=== PATIENT | female | born 1955 | race Hispanic/Latino ===

== ENCOUNTER → 2017-07-20 | Outpatient (CLI) | payer MEDICAID ==
[~2017-07-20] MED LIST: ACET-66 PO; ACET1TAB27 PO; ACET500C4 PO; AMOX-426 PO; ASPI-1181 PO; ATOR40TA69 PO; BUTA1CAP49 PO; CARB400T3 PO; CEFD300C3 PO; CIPR-245 PO; FIORIT PO; GABA-529 PO; IBUP-2070 PO; IBUP-2077 PO; LAMO100T13 PO; LISI10TA7 PO; LORA0.5T2 PO; LORA2TAB2 PO; MECL-111 PO; MOME17N EN; MONT10TA24 PO; OMEP40CA37 PO; ONDA4TAB10 PO; ONDA4TAB4 PO; PHEN100C23 PO; PHEN100C9 PO; VENL-62 PO
== END | disposition home or self-care (01) ==
LOC: RAH 09:09
PROVIDERS: ATTEND Internal Medicine
DX: K44.9 Diaphragmatic hernia without obstruction or gangrene (principal); K21.9 Gastro-esophageal reflux disease without esophagitis
CPT/HCPCS: 74240

== ENCOUNTER → 2017-08-30 | Outpatient (CLI) | payer MEDICAID ==
[~2017-08-30] MED LIST changes: -ACET-66 PO; -ACET1TAB27 PO; -AMOX-426 PO; -ASPI-1181 PO; -ATOR40TA69 PO; -CARB400T3 PO; -FIORIT PO; -IBUP-2070 PO; -LORA2TAB2 PO; -MECL-111 PO; -MOME17N EN; -MONT10TA24 PO; -OMEP40CA37 PO; -ONDA4TAB4 PO; -PHEN100C23 PO; -PHEN100C9 PO
== END | disposition home or self-care (01) ==
LOC: RAH 11:29
PROVIDERS: ATTEND Family Medicine
DX: S33.39XA Dislocation of other parts of lumbar spine and pelvis, initial encounter (principal); M43.8X6 Other specified deforming dorsopathies, lumbar region; M25.552 Pain in left hip; X58.XXXA Exposure to other specified factors, initial encounter; Y92.89 Other specified places as the place of occurrence of the external cause; Y93.89 Activity, other specified; Y99.8 Other external cause status
CPT/HCPCS: 72100; 73502

== ENCOUNTER → 2018-09-26 | Outpatient (CLI) | payer MEDICAID | END | disposition home or self-care (01) | LOC: RAH 08:48 | PROVIDERS: ATTEND Family Medicine | DX: M16.11 Unilateral primary osteoarthritis, right hip (principal); M85.851 Other specified disorders of bone density and structure, right thigh; M47.816 Spondylosis without myelopathy or radiculopathy, lumbar region | CPT/HCPCS: 72100; 73502 ==

== ENCOUNTER → 2020-05-17 | Outpatient (CLI) | payer MEDICARE ==
[~2020-05-17] MED LIST changes: -CIPR-245 PO; +CIPR500T10 PO; -LAMO100T13 PO; +LAMO100T16 PO; +LISI10TA24 PO; -LISI10TA7 PO
== END | disposition home or self-care (01) ==
LOC: RAH 10:40
PROVIDERS: ATTEND Family Medicine
DX: I65.23 Occlusion and stenosis of bilateral carotid arteries (principal); R55 Syncope and collapse
CPT/HCPCS: 93880

== ENCOUNTER 2020-05-20 20:14 | Emergency (ER) | payer MEDICARE ==
[2020-05-20] MEDS ORDERED: ONDANSETRON HCL 4 MG/2 ML VIAL ONE (21:10)
[2020-05-20] MEDS ORDERED: MORPHINE SULFATE 2 MG/ML 1ML SYG ONE (21:11)
== END 2020-05-20 23:57 | disposition home or self-care (01) ==
LOC: EDH 20:14
DX: S82.302A Unspecified fracture of lower end of left tibia, initial encounter for closed fracture (principal); S82.65XA Nondisplaced fracture of lateral malleolus of left fibula, initial encounter for closed fracture; F41.9 Anxiety disorder, unspecified; I10 Essential (primary) hypertension; X50.1XXA Overexertion from prolonged static or awkward postures, initial encounter; Y93.89 Activity, other specified; Y92.098 Other place in other non-institutional residence as the place of occurrence of the external cause; Y99.8 Other external cause status
CPT/HCPCS: 29515; 73610; 96372; 99283; J2405

== ENCOUNTER 2020-08-25 15:59 | Emergency (ER) | payer MEDICARE ==
[~2020-08-25] VITALS: Ht 152.4 cm; Wt 68.9 kg
[2020-08-25 16:02] VITALS: BP 153/64
[2020-08-25 17:30] VITALS: BP 130/61
[2020-08-25] MEDS ORDERED: ONDANSETRON 4MG INJ ONE (19:23)
[2020-08-25] MEDS ORDERED: ONDANSETRON 4MG INJ IVP ONE (19:30)
== END 2020-08-25 20:36 | disposition home or self-care (01) ==
LOC: EDBD 15:59 → EDH 16:54
DX: S00.81XA Abrasion of other part of head, initial encounter (principal); S80.212A Abrasion, left knee, initial encounter; K21.9 Gastro-esophageal reflux disease without esophagitis; I10 Essential (primary) hypertension; F41.9 Anxiety disorder, unspecified; Z79.899 Other long term (current) drug therapy; W18.39XA Other fall on same level, initial encounter; Y93.89 Activity, other specified; Y92.89 Other specified places as the place of occurrence of the external cause; Y99.8 Other external cause status
CPT/HCPCS: 70450; 82948; 93005; 96374; 99284; J2405

== ENCOUNTER 2020-09-18 00:50 | Observation (INO) | payer MEDICARE ==
[~2020-09-18] VITALS: Ht 152.4 cm; Wt 65.8 kg
[2020-09-18] VITALS (7 sets, daily range): BP systolic 95–143; BP diastolic 48–69
[2020-09-18 01:13] LABS: HEMATOCRIT 32.4 % (36-48); MEAN CORPUSCULAR HEMOGLOBIN 30.5 pg (27.0-33.0); MEAN CORPUSCULAR HGB CONC 33.3 g/dL (32.0-36.0); MEAN CORPUSCULAR VOLUME 91.5 fL (79-99); PLATELET COUNT (AUTO) 430 K/uL (130-400); RED BLOOD CELL COUNT(AUTO) 3.54 MIL/uL (4.00-5.50); RED CELL DISTRIBUTION WIDTH 13.2 % (11.0-15.5); WHITE BLOOD COUNT (AUTO) 9.2 K/uL (4.8-10.8)
[2020-09-18 01:25] LABS: CREATININE 1.2 mg/dL (0.5-1.5); POTASSIUM 4.2 mmol/L (3.5-5.1)
[2020-09-18 01:29] LABS: ALBUMIN 4.1 g/dL (3.5-5.0); BILIRUBIN,TOTAL 0.2 mg/dL (0.2-1.0); TOTAL PROTEIN, SERUM 8.3 g/dL (6.0-8.3)
[2020-09-18] MEDS ORDERED: CEFTRIAXONE 1G VIAL IVP ONE (01:30)
[2020-09-18] MEDS ORDERED: CEFTRIAXONE 1G VIAL ONE (01:32)
[2020-09-18 01:36] LABS: APPEARANCE,URINE Clear (CLEAR); BILIRUBIN,URINE Negative (NEGATIVE); COLOR,URINE Yellow (YELLOW); GLUCOSE, URINE (UA) Negative (NEGATIVE); KETONES,URINE Negative (NEGATIVE); LEUKOCYTE ESTERASE ,URINE Moderate (NEGATIVE); NITRATE,URINE Negative (NEGATIVE); OCCULT BLOOD,URINE Trace (NEGATIVE); PH,URINE 5.5 (5.0-8.0); PROTEIN,URINE Negative (NEGATIVE); UROBILINOGEN,URINE 0.2 mg/dL (0.2-1.0)
[2020-09-18] MEDS ORDERED: 0.9%NACL 1000ML 1,000 ML IV ONE ×2 (01:48→05:30)
[2020-09-18 01:52] LABS: RBC,URINE 0-1 /HPF (0-1)
[2020-09-18 01:53] LABS: BACTERIA,URINE None Seen /HPF (None Seen); SQUAMOUS EPITHELIAL CELL,UR Few /HPF (0-2)
[2020-09-18] MEDS: 0.9%NACL 1000ML 1,000 ML IV SCH ×4 (01:53→05:53)
[2020-09-18 02:10] LABS: EOSINOPHILS % (MANUAL) 2 % (1-6); LYMPHOCYTES % (MANUAL) 33 % (22-44); MONOCYTES % (MANUAL) 7 % (2-9); SEGMENTED NEUTROPHILS % 58 % (40-70)
[2020-09-18 02:11] LABS: MAN.DIFF COMMENT-IMPRESSION MANUAL DIFFERENTIAL
[2020-09-18 02:12] LABS: PLATELET MORPHOLOGY COMMENT SLIGHT INCREASED
[2020-09-18] MEDS ORDERED: ONDANSETRON 4MG INJ IVP ONE (03:00)
[2020-09-18] MEDS ORDERED: PANTOPRAZOLE 40 MG/VIAL IV SCH (03:00)
[2020-09-18] MEDS ORDERED: ONDANSETRON 4MG INJ ONE (03:00)
[2020-09-18] MEDS ORDERED: PANTOPRAZOLE 40 MG/VIAL ONE ×2 (03:01→06:41)
[2020-09-18] MEDS ORDERED: IOHEXOL 350 MG/ML 100ML INFUS..BTL IV ONE (03:17)
[2020-09-18] MEDS ORDERED: FAMOTIDINE 20MG VIAL IV ONE ×2 (03:24→03:30)
[2020-09-18] MEDS ORDERED: METOCLOPRAMIDE 10 MG/2 ML VIAL ONE (03:24)
[2020-09-18] MEDS ORDERED: METOCLOPRAMIDE 10 MG/2 ML VIAL IVP ONE (03:30)
[2020-09-18] MEDS ORDERED: ONDANSETRON 4MG INJ IV PRN (06:30)
[2020-09-18] MEDS ORDERED: AZITHROMYCIN 500MG VIAL IVPB SCH (06:30)
[2020-09-18] MEDS ORDERED: LACTATED RINGERS 1000ML 1,000 ML IV SCH (06:30)
[2020-09-18] MEDS ORDERED: 0.9% NACL 250ML IVPB SCH (06:30)
[2020-09-18] MEDS ORDERED: CEFTRIAXONE 1G VIAL IV SCH (06:30)
[2020-09-18 06:58] LABS: BASOPHILS % (AUTO) 0.6 % (0.0-5.0); EOSINOPHILS % (AUTO) 5.8 % (0.0-8.0); HEMATOCRIT 30.4 % (36-48); LYMPHOCYTES % (AUTO) 23.6 % (21.0-51.0); MEAN CORPUSCULAR HEMOGLOBIN 29.9 pg (27.0-33.0); MEAN CORPUSCULAR HGB CONC 32.6 g/dL (32.0-36.0); MEAN CORPUSCULAR VOLUME 91.8 fL (79-99); MONOCYTES % (AUTO) 8.6 % (3.0-13.0); NEUTROPHILS % (AUTO) 61.1 % (40.0-77.0); PLATELET COUNT (AUTO) 347 K/uL (130-400); RED BLOOD CELL COUNT(AUTO) 3.31 MIL/uL (4.00-5.50); RED CELL DISTRIBUTION WIDTH 13.1 % (11.0-15.5); WHITE BLOOD COUNT (AUTO) 7.8 K/uL (4.8-10.8)
[2020-09-18] MEDS ORDERED: 0.9% NACL 250ML 250 ML IV SCH (07:00)
[2020-09-18] MEDS ORDERED: AZITHROMYCIN 500MG+NS 250ML IV SCH (07:00)
[2020-09-18] MEDS ORDERED: TRAZ-185 PO (08:21)
[2020-09-18] MEDS ORDERED: ALLO100T PO (08:21)
[2020-09-18] MEDS ORDERED: SUCR1TAB2 PO (08:21)
[2020-09-18] MEDS ORDERED: DOCU100T PO (08:21)
[2020-09-18] MEDS ORDERED: LISI20TA24 PO (08:21)
[2020-09-18] MEDS ORDERED: FAMO-136 PO (08:21)
[2020-09-18] MEDS ORDERED: GABA300C PO (08:21)
[2020-09-18] MEDS ORDERED: MAGN400O17 PO (08:21)
[2020-09-18] MEDS ORDERED: MONT10TA32 PO (08:21)
[2020-09-18] MEDS ORDERED: LAMO100T16 PO (08:21)
[2020-09-18] MEDS ORDERED: MULT-1203 PO (08:21)
[2020-09-18] MEDS ORDERED: FERR-72 PO (08:21)
[2020-09-18] MEDS ORDERED: TOPI100T31 PO (08:21)
[2020-09-18] MEDS ORDERED: GUAI100S13 PO (08:21)
[2020-09-18] MEDS ORDERED: LACT10SO9 PO (08:21)
[2020-09-18] MEDS ORDERED: SENN-295 PO (08:21)
[2020-09-18] MEDS ORDERED: LOPE2TAB26 PO (08:21)
[2020-09-18] MEDS ORDERED: IRON1CAP32 PO (08:21)
[2020-09-18] MEDS ORDERED: ACET325C6 PO (08:21)
[2020-09-18] MEDS ORDERED: ALPR0.5T8 PO (08:21)
[2020-09-18] MEDS ORDERED: ACET1TAB25 PO (08:21)
[2020-09-18] MEDS ORDERED: MECL-160 PO (08:21)
[2020-09-18] MEDS ORDERED: PANTOPRAZOLE 40MG INJ 80 MG in 0.9%NACL 100ML 100 ML IV SCH (09:00)
[2020-09-18] MEDS ORDERED: AMOX-426 PO (11:08)
== END 2020-09-18 13:34 | disposition home or self-care (01) ==
LOC: EDH 01:17 → EDHIP 06:15
PROVIDERS: ADMIT Internal Medicine Pulmonary Disease; ATTEND Internal Medicine Pulmonary Disease
DX: K04.7 Periapical abscess without sinus (principal); K92.2 Gastrointestinal hemorrhage, unspecified; K00.7 Teething syndrome; D64.9 Anemia, unspecified; R56.9 Unspecified convulsions; I10 Essential (primary) hypertension; E11.9 Type 2 diabetes mellitus without complications; G30.9 Alzheimer's disease, unspecified; F02.80 Dementia in other diseases classified elsewhere, unspecified severity, without behavioral disturbance, psychotic disturbance, mood disturbance, and anxiety; J44.9 Chronic obstructive pulmonary disease, unspecified; R53.1 Weakness; F41.9 Anxiety disorder, unspecified; K59.00 Constipation, unspecified; E86.9 Volume depletion, unspecified; Z90.49 Acquired absence of other specified parts of digestive tract; Z79.899 Other long term (current) drug therapy; Z98.891 History of uterine scar from previous surgery; Z98.890 Other specified postprocedural states
CPT/HCPCS: 36415; 70450; 71045; 71260; 74177; 80053; 80185; 81001; 82270; 83605; 83690; 84484; 85025 ×2; 86677; 87040 ×2; 87088; 93005; 96361 ×2; 96374; 96375; 96376; 99285; C9113 ×3; G0378 ×7; J0696; J2405; J2765; J3490; J7030; J7050; J7120; Q9967; 96365

== ENCOUNTER 2020-09-20 08:33 | Emergency (ER) | payer MEDICARE ==
[2020-09-20] VITALS (7 sets, daily range): BP systolic 142–161; BP diastolic 68–82
[~2020-09-20] VITALS: Ht 160 cm; Wt 74.8 kg
[~2020-09-20 08:33] MED LIST changes: +ACET1TAB25 PO; +ACET325C6 PO; -ACET500C4 PO; +ALLO100T PO; +ALPR0.5T8 PO; +AMOX-426 PO; -BUTA1CAP49 PO; -CEFD300C3 PO; -CIPR500T10 PO; +DOCU100T PO; +FAMO-136 PO; +FERR-72 PO; -GABA-529 PO; +GABA300C PO; +GUAI100S13 PO; -IBUP-2077 PO; +IRON1CAP32 PO; +LACT10SO9 PO; -LISI10TA24 PO; +LISI20TA24 PO; +LOPE2TAB26 PO; -LORA0.5T2 PO; +MAGN400O17 PO; +MECL-160 PO; +MONT10TA32 PO; +MULT-1203 PO; -ONDA4TAB10 PO; +SENN-295 PO; +SUCR1TAB2 PO; +TOPI100T31 PO; +TRAZ-185 PO; -VENL-62 PO
[2020-09-20] MEDS ORDERED: LORAZEPAM 2 MG/ML 1 ML VIAL IVP SCH (09:00)
[2020-09-20 09:14] LABS: BASOPHILS % (AUTO) 0.2 % (0.0-5.0); EOSINOPHILS % (AUTO) 0.1 % (0.0-8.0); HEMATOCRIT 29.8 % (36-48); LYMPHOCYTES % (AUTO) 8.1 % (21.0-51.0); MEAN CORPUSCULAR HEMOGLOBIN 29.8 pg (27.0-33.0); MEAN CORPUSCULAR HGB CONC 33.9 g/dL (32.0-36.0); MEAN CORPUSCULAR VOLUME 87.9 fL (79-99); MONOCYTES % (AUTO) 3.1 % (3.0-13.0); NEUTROPHILS % (AUTO) 88.2 % (40.0-77.0); PLATELET COUNT (AUTO) 381 K/uL (130-400); RED BLOOD CELL COUNT(AUTO) 3.39 MIL/uL (4.00-5.50); RED CELL DISTRIBUTION WIDTH 12.7 % (11.0-15.5); WHITE BLOOD COUNT (AUTO) 9.2 K/uL (4.8-10.8)
[2020-09-20 09:28] LABS: CREATININE 1.1 mg/dL (0.5-1.5)
[2020-09-20 09:31] LABS: ALBUMIN 4.1 g/dL (3.5-5.0); BILIRUBIN,TOTAL 0.4 mg/dL (0.2-1.0); MAGNESIUM 1.9 mg/dL (1.80-2.40)
[2020-09-20] MEDS ORDERED: LAMOTRIGINE 100 MG TABLET PO SCH (15:30)
== END 2020-09-20 18:40 | disposition home or self-care (01) ==
LOC: EDH 08:33
DX: G40.89 Other seizures (principal); F41.9 Anxiety disorder, unspecified; I10 Essential (primary) hypertension; Z79.899 Other long term (current) drug therapy; Z79.1 Long term (current) use of non-steroidal anti-inflammatories (NSAID)
CPT/HCPCS: 36415; 70450; 80053; 80201; 82542; 82550; 83690; 83735; 84484; 85025; 96374; 99285; J2060

== ENCOUNTER 2020-10-06 18:54 | Emergency (ER) | payer MEDICARE ==
[~2020-10-06] VITALS: Ht 154.9 cm; Wt 77.1 kg
[2020-10-06 19:58] LABS: BASOPHILS % (AUTO) 0.6 % (0.0-5.0); EOSINOPHILS % (AUTO) 4.4 % (0.0-8.0); HEMATOCRIT 31.4 % (36-48); LYMPHOCYTES % (AUTO) 32.4 % (21.0-51.0); MEAN CORPUSCULAR HEMOGLOBIN 30.2 pg (27.0-33.0); MEAN CORPUSCULAR HGB CONC 32.8 g/dL (32.0-36.0); MEAN CORPUSCULAR VOLUME 92.1 fL (79-99); MONOCYTES % (AUTO) 9.8 % (3.0-13.0); NEUTROPHILS % (AUTO) 52.5 % (40.0-77.0); PLATELET COUNT (AUTO) 407 K/uL (130-400); RED BLOOD CELL COUNT(AUTO) 3.41 MIL/uL (4.00-5.50); RED CELL DISTRIBUTION WIDTH 12.7 % (11.0-15.5); WHITE BLOOD COUNT (AUTO) 6.8 K/uL (4.8-10.8)
[2020-10-06 20:07] VITALS: BP 149/72
[2020-10-06 20:11] LABS: APPEARANCE,URINE Clear (CLEAR); BILIRUBIN,URINE Negative (NEGATIVE); COLOR,URINE Yellow (YELLOW); GLUCOSE, URINE (UA) Negative (NEGATIVE); KETONES,URINE Negative (NEGATIVE); LEUKOCYTE ESTERASE ,URINE Small (NEGATIVE); NITRATE,URINE Negative (NEGATIVE); OCCULT BLOOD,URINE Negative (NEGATIVE); PH,URINE 7.5 (5.0-8.0); PROTEIN,URINE Negative (NEGATIVE); UROBILINOGEN,URINE 0.2 mg/dL (0.2-1.0)
[2020-10-06 20:18] LABS: CREATININE 1.4 mg/dL (0.5-1.5); POTASSIUM 4.2 mmol/L (3.5-5.1)
[2020-10-06 20:19] LABS: AMPHET/METH SCREEN,URINE NEGATIVE (NEGATIVE); BARBITURATE SCREEN, URINE NEGATIVE (NEGATIVE); BENZODIAZEPINES SCREEN,URINE NEGATIVE (NEGATIVE); CANNABINOID SCREEN,URINE NEGATIVE (NEGATIVE); COCAINE SCREEN,URINE NEGATIVE (NEGATIVE); OPIATE SCREEN,URINE NEGATIVE (NEGATIVE); PHENCYCLIDINE SCREEN,URINE NEGATIVE (NEGATIVE)
[2020-10-06 20:20] LABS: RBC,URINE 0-1 /HPF (0-1)
[2020-10-06 20:21] LABS: BACTERIA,URINE Rare /HPF (None Seen); SQUAMOUS EPITHELIAL CELL,UR Few /HPF (0-2)
[2020-10-06 20:22] LABS: ALBUMIN 3.9 g/dL (3.5-5.0); BILIRUBIN,TOTAL 0.2 mg/dL (0.2-1.0); TOTAL PROTEIN, SERUM 7.6 g/dL (6.0-8.3)
== END 2020-10-07 02:44 | disposition home or self-care (01) ==
LOC: EDH 18:54
DX: G40.89 Other seizures (principal); F41.9 Anxiety disorder, unspecified; I10 Essential (primary) hypertension; K21.9 Gastro-esophageal reflux disease without esophagitis; Z79.899 Other long term (current) drug therapy; Z20.822 Contact with and (suspected) exposure to COVID-19
CPT/HCPCS: 36415; 70450; 71045; 80053; 80305; 81001; 82140; 82550; 83605; 84484; 85025; 87040 ×2; 87635; 93005; 99285; C9803

== ENCOUNTER 2021-01-17 17:37 | Emergency (ER) | payer MEDICARE ==
[~2021-01-17] VITALS: Ht 149.9 cm; Wt 74.8 kg
[~2021-01-17 17:37] MED LIST changes: +MONT-39 PO; -MONT10TA32 PO
[2021-01-17 19:10] LABS: APPEARANCE,URINE Clear (CLEAR); BILIRUBIN,URINE Negative (NEGATIVE); COLOR,URINE Yellow (YELLOW); GLUCOSE, URINE (UA) Negative (NEGATIVE); KETONES,URINE Negative (NEGATIVE); LEUKOCYTE ESTERASE ,URINE Trace (NEGATIVE); NITRATE,URINE Negative (NEGATIVE); OCCULT BLOOD,URINE Small (NEGATIVE); PROTEIN,URINE Negative (NEGATIVE); UROBILINOGEN,URINE 0.2 mg/dL (0.2-1.0)
[2021-01-17 19:15] LABS: BASOPHILS % (AUTO) 0.2 % (0.0-5.0); EOSINOPHILS % (AUTO) 0.2 % (0.0-8.0); HEMATOCRIT 34.5 % (36-48); LYMPHOCYTES % (AUTO) 13.3 % (21.0-51.0); MEAN CORPUSCULAR HEMOGLOBIN 28.6 pg (27.0-33.0); MEAN CORPUSCULAR HGB CONC 32.8 g/dL (32.0-36.0); MEAN CORPUSCULAR VOLUME 87.3 fL (79-99); MONOCYTES % (AUTO) 6.6 % (3.0-13.0); NEUTROPHILS % (AUTO) 79.3 % (40.0-77.0); PLATELET COUNT (AUTO) 342 K/uL (130-400); RED BLOOD CELL COUNT(AUTO) 3.95 MIL/uL (4.00-5.50); RED CELL DISTRIBUTION WIDTH 12.3 % (11.0-15.5); WHITE BLOOD COUNT (AUTO) 10.4 K/uL (4.8-10.8)
[2021-01-17 19:26] LABS: CREATININE 1.3 mg/dL (0.5-1.5); POTASSIUM 4.2 mmol/L (3.5-5.1)
[2021-01-17 19:31] LABS: ALBUMIN 4.2 g/dL (3.5-5.0); BILIRUBIN,TOTAL 0.4 mg/dL (0.2-1.0); TOTAL PROTEIN, SERUM 8.2 g/dL (6.0-8.3)
[2021-01-17 19:32] LABS: BACTERIA,URINE Rare /HPF (None Seen); RBC,URINE 0-1 /HPF (0-1); WBC,URINE 0-1 /HPF (0-1)
[2021-01-17 19:33] LABS: SQUAMOUS EPITHELIAL CELL,UR Rare /HPF (0-2)
[2021-01-17] MEDS ORDERED: CHLO25 PO (20:02)
[2021-01-17] MEDS ORDERED: ACETAMINOPHEN 500 MG TABLET PO ONE (20:30)
[2021-01-17 22:05] VITALS: BP 145/68
== END 2021-01-17 22:26 | disposition home or self-care (01) ==
LOC: EDH 17:37
DX: S50.02XA Contusion of left elbow, initial encounter (principal); R06.6 Hiccough; R53.1 Weakness; X58.XXXA Exposure to other specified factors, initial encounter; Y93.89 Activity, other specified; Y92.89 Other specified places as the place of occurrence of the external cause; Y99.8 Other external cause status
CPT/HCPCS: 36415; 73080; 80053; 81001; 85025; 93005; 99285; Q0161

== ENCOUNTER 2021-01-22 14:58 | Emergency (ER) | payer MEDICARE ==
[~2021-01-22] VITALS: Ht 157.5 cm; Wt 79.4 kg
[~2021-01-22 14:58] MED LIST changes: +CHLO25 PO
[2021-01-22] MEDS ORDERED: LORAZEPAM 2 MG/ML 1 ML VIAL IM SCH (15:30)
[2021-01-22 16:07] LABS: BASOPHILS % (AUTO) 0.4 % (0.0-5.0); EOSINOPHILS % (AUTO) 4.8 % (0.0-8.0); HEMATOCRIT 34.1 % (36-48); LYMPHOCYTES % (AUTO) 21.1 % (21.0-51.0); MEAN CORPUSCULAR HEMOGLOBIN 28.9 pg (27.0-33.0); MEAN CORPUSCULAR HGB CONC 32.8 g/dL (32.0-36.0); MEAN CORPUSCULAR VOLUME 88.1 fL (79-99); MONOCYTES % (AUTO) 9.1 % (3.0-13.0); NEUTROPHILS % (AUTO) 64.3 % (40.0-77.0); PLATELET COUNT (AUTO) 407 K/uL (130-400); RED BLOOD CELL COUNT(AUTO) 3.87 MIL/uL (4.00-5.50); RED CELL DISTRIBUTION WIDTH 12.9 % (11.0-15.5); WHITE BLOOD COUNT (AUTO) 6.9 K/uL (4.8-10.8)
[2021-01-22 16:32] LABS: CREATININE 1.2 mg/dL (0.5-1.5); POTASSIUM 4.3 mmol/L (3.5-5.1)
[2021-01-22 16:37] LABS: ALBUMIN 3.9 g/dL (3.5-5.0); BILIRUBIN,TOTAL 0.2 mg/dL (0.2-1.0); TOTAL PROTEIN, SERUM 7.7 g/dL (6.0-8.3)
[2021-01-22 17:53] VITALS: BP 107/51
== END 2021-01-22 17:54 | disposition home or self-care (01) ==
LOC: EDH 14:58
DX: R07.89 Other chest pain (principal); I10 Essential (primary) hypertension; F41.9 Anxiety disorder, unspecified; F32.A Depression, unspecified; E66.9 Obesity, unspecified; Z79.899 Other long term (current) drug therapy; Z68.32 Body mass index [BMI] 32.0-32.9, adult
CPT/HCPCS: 36415; 71045; 80053; 84484; 85025; 86140; 93005; 96372; 99285; J2060

== ENCOUNTER 2021-03-22 06:41 | Emergency (ER) | payer MEDICARE ==
[2021-03-22 07:07] VITALS: BP 132/88
== END 2021-03-22 09:15 | disposition home or self-care (01) ==
LOC: EDH 06:41
DX: R41.82 Altered mental status, unspecified (principal); M10.9 Gout, unspecified; Z79.899 Other long term (current) drug therapy

== ENCOUNTER 2021-09-19 12:05 | Emergency (ER) | payer MEDICARE ==
[~2021-09-19] VITALS: Ht 149.9 cm; Wt 70.8 kg
[~2021-09-19 12:05] MED LIST changes: +ACET-2079 PO; -ACET1TAB25 PO
[2021-09-19] MEDS ORDERED: DIPHENHYDRAMINE HCL 25 MG CAPSULE PO ONE (13:00)
[2021-09-19 13:23] LABS: BASOPHILS % (AUTO) 0.3 % (0.0-5.0); EOSINOPHILS % (AUTO) 4.3 % (0.0-8.0); HEMATOCRIT 28.9 % (36-48); LYMPHOCYTES % (AUTO) 17.6 % (21.0-51.0); MEAN CORPUSCULAR HEMOGLOBIN 29.6 pg (27.0-33.0); MEAN CORPUSCULAR HGB CONC 32.9 g/dL (32.0-36.0); MONOCYTES % (AUTO) 6.3 % (3.0-13.0); NEUTROPHILS % (AUTO) 71.2 % (40.0-77.0); PLATELET COUNT (AUTO) 312 K/uL (130-400); RED BLOOD CELL COUNT(AUTO) 3.21 MIL/uL (4.00-5.50); RED CELL DISTRIBUTION WIDTH 13.8 % (11.0-15.5); WHITE BLOOD COUNT (AUTO) 9.2 K/uL (4.8-10.8)
[2021-09-19 13:33] LABS: CARBON DIOXIDE 28 mmol/L (21-32); CHLORIDE 110 mmol/L (101-111); CREATININE 1.3 mg/dL (0.5-1.5); GLOMERULAR FILTR. RATE CALC 43 mL/min (>60); GLUCOSE,RANDOM 134 mg/dL (70-105); POTASSIUM 3.3 mmol/L (3.5-5.1); SODIUM SERUM 146 mmol/L (136-145); UREA NITROGEN, BLOOD 13 mg/dL (7-18)
[2021-09-19 13:37] LABS: ALANINE AMINOTRANSFERASE 24 U/L (12-78); ALBUMIN 3.3 g/dL (3.5-5.0); ASPARTATE AMINOTRANSFERASE 30 U/L (10-37); TOTAL PROTEIN, SERUM 6.7 g/dL (6.0-8.3)
[2021-09-19 13:39] LABS: APPEARANCE,URINE CLEAR (CLEAR); BILIRUBIN,URINE NEGATIVE (NEGATIVE); COLOR,URINE YELLOW (YELLOW); GLUCOSE, URINE (UA) NEGATIVE (NEGATIVE); KETONES,URINE NEGATIVE (NEGATIVE); LEUKOCYTE ESTERASE ,URINE NEGATIVE (NEGATIVE); NITRATE,URINE NEGATIVE (NEGATIVE); OCCULT BLOOD,URINE NEGATIVE (NEGATIVE); PH,URINE 6.5 (5.0-8.0); PROTEIN,URINE NEGATIVE (NEGATIVE); UROBILINOGEN,URINE 0.2 mg/dL (0.2-1.0)
[2021-09-19] MEDS ORDERED: HYDR50CA PO (15:57)
[2021-09-19 21:44] VITALS: BP 148/62
== END 2021-09-19 21:52 | disposition home or self-care (01) ==
LOC: EDH 12:05
DX: F41.9 Anxiety disorder, unspecified (principal); R53.1 Weakness; Z20.822 Contact with and (suspected) exposure to COVID-19; E11.9 Type 2 diabetes mellitus without complications; I10 Essential (primary) hypertension; E66.9 Obesity, unspecified; Z79.899 Other long term (current) drug therapy; Z68.31 Body mass index [BMI] 31.0-31.9, adult
CPT/HCPCS: 99285; 70450; 71045; 87635; 84484; 80053; 85025; 81003; 36415; 93005; Q0163; C9803

== ENCOUNTER 2022-03-29 07:53 | Emergency (ER) | payer MEDICARE ==
[~2022-03-29] VITALS: Ht 144.8 cm; Wt 64.4 kg
[~2022-03-29 07:53] MED LIST changes: +HYDR50CA PO
[2022-03-29 08:21] LABS: BASOPHILS % (AUTO) 0.3 % (0.0-5.0); EOSINOPHILS % (AUTO) 0.3 % (0.0-8.0); HEMATOCRIT 35.8 % (36-48); LYMPHOCYTES % (AUTO) 7.7 % (21.0-51.0); MEAN CORPUSCULAR HEMOGLOBIN 28.3 pg (27.0-33.0); MEAN CORPUSCULAR HGB CONC 32.1 g/dL (32.0-36.0); MEAN CORPUSCULAR VOLUME 88.2 fL (79-99); MONOCYTES % (AUTO) 3.3 % (3.0-13.0); PLATELET COUNT (AUTO) 457 K/uL (130-400); RED BLOOD CELL COUNT(AUTO) 4.06 MIL/uL (4.00-5.50); RED CELL DISTRIBUTION WIDTH 13.4 % (11.0-15.5)
[2022-03-29 08:30] LABS: CREATININE 1.3 mg/dL (0.5-1.5); POTASSIUM 4.1 mmol/L (3.5-5.1)
[2022-03-29 08:35] LABS: ALBUMIN 4.5 g/dL (3.5-5.0); TOTAL PROTEIN, SERUM 8.5 g/dL (6.0-8.3)
[2022-03-29 10:09] VITALS: BP 121/78
== END 2022-03-29 10:07 | disposition home or self-care (01) ==
LOC: EDH 07:53
DX: G40.909 Epilepsy, unspecified, not intractable, without status epilepticus (principal); E11.9 Type 2 diabetes mellitus without complications; K21.9 Gastro-esophageal reflux disease without esophagitis; F03.90 Unspecified dementia, unspecified severity, without behavioral disturbance, psychotic disturbance, mood disturbance, and anxiety; M10.9 Gout, unspecified; E66.9 Obesity, unspecified; I10 Essential (primary) hypertension; Z79.899 Other long term (current) drug therapy; Z68.30 Body mass index [BMI] 30.0-30.9, adult
CPT/HCPCS: 36415; 80053; 84484; 85025

== ENCOUNTER 2022-07-26 06:46 | Day surgery (SDC) | payer MEDICARE ==
[2022-07-25 09:07] VITALS: BP 134/64
[2022-07-26] VITALS (7 sets, daily range): BP systolic 128–176; BP diastolic 77–95
[~2022-07-26] VITALS: Ht 162.6 cm; Wt 67.0 kg
[~2022-07-26 06:46] MED LIST changes: -ACET-2079 PO; +ACET-2743 PO; -ACET325C6 PO; -ALLO100T PO; -ALPR0.5T8 PO; -AMOX-426 PO; +ATOR10 PO; -CHLO25 PO; -DOCU100T PO; +DONE5TAB3 PO; -FAMO-136 PO; -FERR-72 PO; -GABA300C PO; -GUAI100S13 PO; -HYDR50CA PO; -IRON1CAP32 PO; -LACT10SO9 PO; -LAMO100T16 PO; -LOPE2TAB26 PO; -MAGN400O17 PO; -MECL-160 PO; -MONT-39 PO; -MULT-1203 PO; +OMEP20TA2 PO; +PHEN100C23 PO; -SENN-295 PO; -SUCR1TAB2 PO; +TEGRETOL PO; -TOPI100T31 PO; -TRAZ-185 PO
[2022-07-26] MEDS ORDERED: PROPOFOL 10 MG/ML 20ML VIAL IV ONE ×2 (10:10)
[2022-07-26] MEDS ORDERED: SIMETHICONE 40 MG/0.6 ML ML ONE (10:31)
== END 2022-07-26 12:40 | disposition home or self-care (01) ==
LOC: DAH 06:46 → ENDO 06:46
PROVIDERS: ATTEND Internal Medicine Gastroenterology
DX: D50.9 Iron deficiency anemia, unspecified (principal); Z20.822 Contact with and (suspected) exposure to COVID-19; K57.30 Diverticulosis of large intestine without perforation or abscess without bleeding; K64.0 First degree hemorrhoids; K21.00 Gastro-esophageal reflux disease with esophagitis, without bleeding; K44.9 Diaphragmatic hernia without obstruction or gangrene; K31.89 Other diseases of stomach and duodenum; K31.1 Adult hypertrophic pyloric stenosis; F41.9 Anxiety disorder, unspecified; I10 Essential (primary) hypertension; E66.9 Obesity, unspecified; Z98.890 Other specified postprocedural states; Z98.51 Tubal ligation status; Z86.010 Personal history of colon polyps; Z79.899 Other long term (current) drug therapy; Z68.28 Body mass index [BMI] 28.0-28.9, adult
CPT/HCPCS: 87426; 43239; 45378; J2704 ×2; A4620; A4215; A4223; A7002; A4222; A4221; A4663; J7030; A4606

== ENCOUNTER 2023-07-05 07:43 | Emergency (ER) | payer MEDICARE ==
[~2023-07-05] VITALS: Ht 162.6 cm; Wt 79.4 kg
[~2023-07-05 07:43] MED LIST changes: +AMOX1TAB16 PO; +PHEN300C6 PO
[2023-07-05 08:28] LABS: BASOPHILS # (AUTO) 0.06 K/uL (0.00-0.20); BASOPHILS % (AUTO) 0.8 % (0.0-5.0); EOSINOPHILS # (AUTO) 0.06 K/uL (0.00-0.70); EOSINOPHILS % (AUTO) 0.8 % (0.0-8.0); HEMATOCRIT 35.5 % (36-48); IMMATURE GRANULOCYTE ABSOLUTE 0.04 K/uL (0-1); LYMPHOCYTES % (AUTO) 12.7 % (21.0-51.0); MEAN CORPUSCULAR HEMOGLOBIN 28.9 pg (27.0-33.0); MEAN CORPUSCULAR HGB CONC 33.2 g/dL (32.0-36.0); MEAN CORPUSCULAR VOLUME 86.8 fL (79-99); MONOCYTES # (AUTO) 0.5 K/uL (0.1-1.0); MONOCYTES % (AUTO) 7.1 % (3.0-13.0); NEUTROPHILS # (AUTO) 5.9 K/uL (1.8-7.7); NEUTROPHILS % (AUTO) 78.1 % (40.0-77.0); PLATELET COUNT (AUTO) 340 K/uL (130-400); RED BLOOD CELL COUNT(AUTO) 4.09 MIL/uL (4.00-5.50); RED CELL DISTRIBUTION WIDTH 13.2 % (11.0-15.5); WHITE BLOOD COUNT (AUTO) 7.6 K/uL (4.8-10.8)
[2023-07-05 08:38] LABS: CREATININE 1.3 mg/dL (0.5-1.0); POTASSIUM 3.8 mmol/L (3.5-5.1)
[2023-07-05 08:42] LABS: BILIRUBIN,TOTAL 0.3 mg/dL (0.2-1.0); TOTAL PROTEIN, SERUM 7.8 g/dL (6.0-8.3)
[2023-07-05] MEDS: LEVETIRACETAM 500 MG/5 ML SD VIAL IV SCH (08:55)
[2023-07-05] MEDS: FOSPHENYTOIN SODIUM 100 MG/2 ML VIAL IV ONE (08:56)
[2023-07-05 10:51] VITALS: BP 161/82; PULSE 71; RESP 12; O2SAT 97
== END 2023-07-05 14:09 | disposition home or self-care (01) ==
LOC: EDH 07:43
DX: G40.909 Epilepsy, unspecified, not intractable, without status epilepticus (principal); R89.2 Abnormal level of other drugs, medicaments and biological substances in specimens from other organs, systems and tissues; F41.9 Anxiety disorder, unspecified; E78.00 Pure hypercholesterolemia, unspecified; E66.9 Obesity, unspecified; K21.9 Gastro-esophageal reflux disease without esophagitis; Z79.899 Other long term (current) drug therapy; Z68.30 Body mass index [BMI] 30.0-30.9, adult
CPT/HCPCS: 99284; 96365; 96375; 80185; 80053; 85025; 36415; Q2009; J1953

== ENCOUNTER 2024-03-26 18:55 | Emergency (ER) | payer MEDICARE ==
[~2024-03-26] VITALS: Ht 152.4 cm; Wt 80.3 kg
[2024-03-26] MEDS ORDERED: AMOX1TAB16 PO (19:22)
[2024-03-26] MEDS ORDERED: PRED15SO75 PO (19:22)
--- NOTE | 2024-03-26 19:22 | ERN ---
ED Note History of Present Illness Stated Complaint: DIFFICULTY SWALLOWING X 3 YRS Chief Complaint: Sore Throat Time Seen by MD: 19:07 Dictation: PATIENT IS A 68-YEAR-OLD FEMALE HERE WITH COMPLAINTS OF HAVING A SORE THROAT WITH PAINFUL SWALLOWING FOR ONE WEEK. SHE HAS HAD NO FEVER NO CHILLS NO NAUSEA VOMITING. STATES SHE HAS A PRIMARY CARE DOCTOR HOWEVER HAS NOT BEEN TO SEE HIM. CURRENTLY AFEBRILE IN TRIAGE. VOICE IS CLEAR. Allergies: Coded Allergies: No Known Drug Allergies (Unverified Allergy, Unknown, 08/02/15) Unable to Assess (Unverified Allergy, Unknown, 06/23/22) Home Meds Active Scripts Prednisolone (Prednisolone) 15 Mg/5 Ml Solution, 10 ML PO DAILY for 5 Days, #50 ML 0 Refills Prov:CAN BARNETT LEVEL VIAL GRINDER 03/26/24 Amoxicillin/Potassium Clav (Amox Tr-K Clv 875-125 mg Tab) 875 Mg-125 Mg Tablet, 1 EACH PO BID for 7 Days, #14 TAB 0 Refills Prov:CAN BARNETT LEVEL VIAL GRINDER 03/26/24 Amoxicillin/Potassium Clav (Amox Tr-K Clv 875-125 mg Tab) 875 Mg-125 Mg Tablet, 1 EACH PO BID for 7 Days, #14 TAB Prov:TRINA WILCOX NP 02/24/23 Phenytoin Sodium Extended (Phenytoin Sodium Extended) 300 Mg Capsule, 300 MG PO DAILYDINNER, #30 CAP 11 Refills Prov:YVONNE HERNANDEZ Sr., MD 02/22/23 Reported Medications Donepezil HCl (Aricept) 5 Mg Tablet, 5 MG PO HS, TAB 07/25/22 Acetaminophen (Tylenol Extra Strength) 500 Mg Tablet, 500 MG PO AD PRN for PAIN, TAB 07/25/22 Omeprazole Magnesium (Prilosec Otc) 20 Mg Tablet.dr, 40 MG PO DAILY, TAB 07/25/22 Lisinopril (Lisinopril) 20 Mg Tablet, 20 MG PO DAILY, TAB 07/25/22 [Tegretol] No Conflict Check, 180 MG PO BID 07/25/22 Phenytoin Sodium Extended (Dilantin) 100 Mg Capsule, 100 MG PO BID for 30 Days, #90 CAP 0 Refills 07/25/22 Atorvastatin Calcium (LIPITOR) 20 Mg Tab, 20 MG PO HS, TAB 5/23/23 Past Medical History Past Medical History: Dementia, Diabetes-Type II, Hypertension Additional Past Medical Hx: GOUT, obesity, PVD Surgical History: None Surgical History Other: ABDOMEN Social History: Negative, Lives alone History: Not Applicable RN Note Reviewed/Agreed w/PFSH: Yes Review of System Dictation CONSTITUTIONAL: NEGATIVE EXCEPT FOR HPI HEAD/FACE: NEGATIVE EXCEPT FOR HPI EENT: NEGATIVE EXCEPT FOR HPI SORE THROAT WITH PAINFUL SWALLOWING RESPIRATORY: NEGATIVE EXCEPT FOR HPI GASTROINTESTINAL/ABDOMINAL: NEGATIVE EXCEPT FOR HPI GENITOURINARY: NEGATIVE EXCEPT FOR HPI MUSCULOSKELETAL: NEGATIVE EXCEPT FOR HPI INTEGUMENTARY: NEGATIVE EXCEPT FOR HPI NEUROLOGICAL/PSYCH: NEGATIVE EXCEPT FOR HPI HEMATOLOGIC/LYMPHATIC: NEGATIVE EXCEPT FOR HPI ALL SYSTEMS NEGATIVE, EXCEPT NOTED ABOVE. 13 POINT REVIEW OF SYSTEMS ASSESSED AND ALL NEGATIVE EXCEPT FOR ABOVE. Initial Vital Sign VS Vital Signs Date Time Temp Pulse Resp B/P (MAP) Pulse Ox O2 Delivery O2 Flow Rate FiO2 03/26/24 19:03 98.1 82 17 169/76 97 Room Air 0 03/26/24 19:18 21 Physical Exam Dictation VITAL SIGNS REVIEWED GENERAL APPEARANCE: ALERT, ORIENTED X 3, MILD ACUTE DISTRESS, WELL DEVELOPED, NOURISHED. HEAD AND FACE: NON-TRAUMATIC. EYES: PERRL, PINK CONJUNCTIVAS, EYELID NO TRAUMA, ANTERIOR CHAMBER WITH ARCUS SENILIS. EARS: PINNAS INTACT AND NO SIGNS OF TRAUMA OR ERYTHEMA EAR CANALS CLEAR AND NO DISCHARGE TM NO ERYTHEMA NOSE: NO DISCHARGE, NO BLEEDING. OROPHARYNX: MOUTH NORMAL, TONGUE PINK, PHARYNX CLEAR,NO ERYTHEMA, TONSILS 2/4 BILATERALLY AND CRYPTIC, NO ABSCESSES NOTED, MUCOUS MEMBRANE MOIST UVULA MIDLINE, VOICE IS CLEAR. MODERATE SUBTONSILLAR LYMPHADENOPATHY NECK: SUPPLE, NON-TENDER, NO THYROMEGALY, NO MASSES, NO JVD, NO BRUITS BREAST:DEFERRED CHEST:NO TENDERNESS, NO CREPITUS, NO PARADOXICAL MOVEMENT, NO RETRACTIONS LUNGS:CLEAR, WELL-VENTILATED, SYMMETRIC, NO RALES, NO WHEEZING, NO RHONCHI, NO STRIDOR, GOOD BREATH SOUNDS BILATERALLY HEART: REGULAR RATE, REGULAR RHYTHM, NO MURMUR, NO GALLOPS VASCULAR: NO PERIPHERAL EDEMA, ABDOMEN: SOFT, POSITIVE BOWEL SOUNDS, NONDISTENDED, NO GUARDING, NONTENDER, NO REBOUND, NO MASSES NO HEPATOMEGALY, NO SPLENOMEGALY, NO VERDIN'S SIGN, NO HERNIAS. RECTAL: DEFERRED GENITAL: DEFERRED NEUROLOGICAL: NORMAL SPEECH, MOTOR FUNCTION INTACT, SENSORY FUNCTION INTACT MUSCULOSKELETAL: NECK NONTENDER, FULL RANGE OF MOTION, BACK NONTENDER, FULL RANGE OF MOTION, EXTREMITIES: NONTENDER, FULL RANGE OF MOTION SKIN: COLOR PINK, DRY, NO TURGOR, NO RASH, NO LACERATIONS, NO ABRASIONS, NO CONTUSIONS. LYMPHATIC: DEFERRED Results (Laboratory/Radiology) Labs Reviewed?: Yes ED Course ED Course Orders Procedure Category Date Status Time Ceftriaxone 1g Vial PHA 03/26/24 Complete (Rocephine 1g Inj) 19:30 Dexamethasone 4mg/Ml PHA 03/26/24 Complete 1ml Vial (Dexametha 19:30 Current Medications Medications (Trade) Dose Ordered Sig/Tashi Route PRN Reason Start Time Stop Time Status Last Admin Dose Admin Ceftriaxone Sodium (ROCEphine 1G INJ) 1 gm ONCE ONCE IM 03/26/24 19:30 03/26/24 19:31 DC 03/26/24 19:25 Dexamethasone Sodium Phosphate (dexaMETHasone 4MG/ML 1ML VIAL) 8 mg ONCE ONCE IM 03/26/24 19:30 03/26/24 19:31 DC 03/26/24 19:25 Vital Signs Date Time Temp Pulse Resp B/P (MAP) Pulse Ox O2 Delivery O2 Flow Rate FiO2 03/26/24 20:13 98.1 77 17 154/72 97 Room Air* 0 03/26/24 19:18 98.1 82 17 169/76 97 Room Air* 0 03/26/24 19:03 98.1 82 17 169/76 97 Room Air 0 1920 NO LABS OR IMAGING INDICATED AT THIS TIME. WE WILL TREAT PATIENT EMPIRICALLY FOR ACUTE TONSILLITIS UNSPECIFIED WE WILL GIVE ROCEPHIN AND DECADRON NOW. DISCHARGED HOME WITH AUGMENTIN AND MEDROL DOSEPAK, TOLD TO SEE HER PRIMARY CARE DOCTOR Medical Decision Making MDM MEDICAL DISCHARGE MAKING BASED ON EMPIRIC TREATMENT FOR ACUTE TONSILLITIS UNSPECIFIED. PATIENT GIVEN ROCEPHIN1 G, DECADRON8 MG BOTH IM. DISCHARGED HOME WITH MEDROL DOSEPAK AND AUGMENTIN TOLD SEE HER PRIMARY CARE DOCTOR IN 1-2 DAYS DX & DISP Disposition: Discharge Departure Impression: Primary Impression: Acute tonsillitis, unspecified Condition: Stable Scripts Prednisolone (Prednisolone) 15 Mg/5 Ml Solution 10 ML PO DAILY for 5 Days, #50 ML 0 Refills Prov: CAN BARNETT LEVEL VIAL GRINDER 03/26/24 Amoxicillin/Potassium Clav (Amox Tr-K Clv 875-125 mg Tab) 875 Mg-125 Mg Tablet 1 EACH PO BID for 7 Days, #14 TAB 0 Refills Prov: CAN BARNETT NP 03/26/24 Additional Instructions: FOLLOW-UP WITH PRIMARY CARE PROVIDER IN 1 TO 2 DAYS. TAKE MEDICATIONS DIRECTED HERE IN THE EMERGENCY ROOM. OKAY TO CONTINUE HOME MEDICATIONS UNLESS OTHERWISE DISCUSSED DURING YOUR VISIT IN THE EMERGENCY ROOM TODAY. RETURN TO YOUR NEAREST EMERGENCY ROOM IF SYMPTOMS WORSEN OR IF THERE IS NO IMPROVEMENT. CALL 911 IF YOU NEED IMMEDIATE ASSISTANCE. TAKE TYLENOL OR MOTRIN [id number] NEEDED AND IF NO CONTRAINDICATIONS ARE PRESENT. INCREASE ORAL HYDRATION. A WOUND CULTURE OR URINE CULTURE WAS ORDERED HERE IN THE EMERGENCY ROOM DEPARTMENT PLEASE FOLLOW-UP WITH PRIMARY CARE PROVIDER AND ADVISE THEM TO GET REPEAT PORTS FROM OUR FACILITY. IF YOU HAD ANY HAIR WRAP/SPLINTS THAT WERE APPLIED HERE, PLEASE DO NOT REMOVE THEM UNTIL YOU SEE YOUR PRIMARY CARE OR SPECIALTY. TAKE ANTIBIOTICS DIRECTED UNTIL GONE STARTING TOMORROW. TAKE PREDNISOLONE DIRECTED DAILY FOR THE NEXT FIVE DAYS. SEE YOUR PRIMARY CARE DOCTOR FOR FOLLOW UP IN 1-2 DAYS Referrals: CRISTI ALY (PCP) Time of Disposition: 19:20 I have reviewed the case, and I agree with, Diagnosis and Plan I performed a substantive portion of the visit. I have reviewed and personally made and approve the management plan that is documented in the notes by myself with KAYLYNN/resident. I acknowledged full responsibility for the patient's management plan. CAN BARNETT NP Mar 26, 2024 19:22 ADILIA BERGER DO Mar 27, 2024 01:17
[2024-03-26] MEDS: dexaMETHasone SOD PHOSPHATE 4 MG/ML 1ML VIAL IM ONE (19:25)
[2024-03-26] MEDS: cefTRIAXone 1G VIAL IM ONE (19:25)
[2024-03-26 20:13] VITALS: BP 154/72; PULSE 77; RESP 17; TEMP 98.1; O2SAT 97
--- NOTE | 2024-03-26 20:21 | NUR ---
BULK SEALER HARLEY RAMIRES [phone] CALLED AND STATED SHE WOULD PICKUP PT FROM ER WAITING AREA
== END 2024-03-26 20:15 | disposition home or self-care (01) ==
LOC: EDH 18:55
DX: J03.90 Acute tonsillitis, unspecified (principal); E11.51 Type 2 diabetes mellitus with diabetic peripheral angiopathy without gangrene; E66.9 Obesity, unspecified; F03.90 Unspecified dementia, unspecified severity, without behavioral disturbance, psychotic disturbance, mood disturbance, and anxiety; I10 Essential (primary) hypertension; Z79.899 Other long term (current) drug therapy
CPT/HCPCS: 99284; 96372 ×2; J1100; J0696